=== PATIENT | female | born 1995 | race Two or more races ===

== ENCOUNTER → 2017-05-12 | Emergency (ER) | payer OTHER ==
[~2017-05-12] VITALS: Ht 172.7 cm; Wt 88.5 kg
[~2017-05-12] MED LIST: AMOX1TAB5; KETO10TA2 PO; LEVSIN/SL0.125 MG SL; PANADOL EXTRA500 MG; PNEU16DI2; SPRINTEC1 TAB; ZOFRAN8 MG PO
== END | disposition home or self-care (01) ==
LOC: ER 18:42
DX: K29.70 Gastritis, unspecified, without bleeding (principal)

== ENCOUNTER 2017-09-07 05:52 | Day surgery (SDC) | payer OTHER ==
[~2017-09-07] VITALS: Ht 172.7 cm; Wt 86.2 kg
[2017-09-07] MEDS ORDERED: ZOFRAN ODT4 MG PO (09:10)
[2017-09-07] MEDS ORDERED: PROTONIX40 MG PO (09:10)
[2017-09-07] MEDS ORDERED: DICLOFENAC POTA50 MG PO (09:10)
[2017-09-07] MEDS ORDERED: PERCOCET 5-3251 EACH PO (09:10)
== END 2017-09-07 11:00 | disposition home or self-care (01) ==
LOC: CIR.AMB 05:52
DX: K80.10 Calculus of gallbladder with chronic cholecystitis without obstruction (principal)

== ENCOUNTER 2020-11-30 18:24 | Emergency (ER) | payer OTHER ==
[~2020-11-30] VITALS: Ht 172.7 cm; Wt 77.1 kg
[~2020-11-30 18:24] MED LIST changes: +DICLOFENAC POTA50 MG PO; +DICLOFENAC SODI75 MG PO; +NORFLEX100MG PO; +PERCOCET 5-3251 EACH PO; +PROTONIX40 MG PO; +ZOFRAN ODT4 MG PO
== END 2020-11-30 22:50 | disposition home or self-care (01) ==
LOC: ER 18:24
DX: U07.1 COVID-19 (principal); F06.4 Anxiety disorder due to known physiological condition

== ENCOUNTER 2021-11-03 17:20 | Emergency (ER) | payer OTHER ==
[~2021-11-03] VITALS: Ht 172.7 cm; Wt 90.7 kg
== END 2021-11-03 19:31 | disposition left against medical advice (07) ==
LOC: ER 17:20
DX: M54.31 Sciatica, right side (principal)